=== PATIENT | female | born 1990 ===

== ENCOUNTER 2017-05-06 08:20 | Inpatient (IN) | payer BC ==
[2017-05-06 08:44] VITALS: BMI 29.5
[2017-05-06 09:50] LABS: Hematocrit 38.6 % (36.0-47.0); Mean Platelet Volume 10.1 fL (7.4-10.4); White Blood Cell (WBC) Count 14.6 thou/uL (4.8-10.8)
[2017-05-06] MEDS ORDERED: LR / Pitocin 40 units/1000 ml 1,000 ML ONE (10:07)
[2017-05-06] MEDS ORDERED: Lidocaine 1% (PF) 30 ML VIAL ONE (10:07)
[2017-05-06] MEDS ORDERED: Lidocaine 1% (PF) 30 ML VIAL SC PRN (11:11)
[2017-05-06] MEDS ORDERED: LR / Pitocin 40 units/1000 ml 1,000 ML IV PRN (11:11)
[2017-05-06] MEDS ORDERED: HYDROcodone/Acetaminophen 5/325 mg Tablet PO PRN ×2 (11:11→13:19)
[2017-05-06] MEDS ORDERED: Ibuprofen 800 MG TAB PO PRN (11:11)
[2017-05-06] MEDS ORDERED: Ondansetron HCl/PF 4 MG/2 ML Vial IVP PRN (11:12)
[2017-05-06] MEDS ORDERED: Promethazine HCl 25 MG/ML VIAL IM PRN (11:12)
[2017-05-06] MEDS ORDERED: Lactated Ringer's 1,000 ML IV SCH (11:15)
[2017-05-06] MEDS ORDERED: LR / Pitocin 40 units/1000 ml 1,000 ML IV SCH (13:19)
[2017-05-06] MEDS ORDERED: Milk Of Magnesia 30 ML UDCUP PO PRN (13:19)
[2017-05-06] MEDS ORDERED: Lanolin Ointment 7 GM TUBE TOP PRN (13:19)
[2017-05-06] MEDS ORDERED: Bisacodyl 10 MG SUPP PR PRN (13:19)
[2017-05-06] MEDS ORDERED: Preparation H Ointment 28 GM TUBE PR PRN (13:19)
[2017-05-06] MEDS: Ibuprofen 800 MG TAB PO SCH ×2 (15:01→21:51)
[2017-05-06] MEDS: Ferrous Sulfate 325 MG TAB PO SCH (15:02)
[2017-05-06] MEDS: Docusate (Surfak) 240 MG CAP PO SCH (21:51)
[2017-05-07] MEDS: Ibuprofen 800 MG TAB PO SCH ×2 (06:21→14:25)
[2017-05-07] MEDS: Ferrous Sulfate 325 MG TAB PO SCH (08:47)
[2017-05-07] MEDS ORDERED: Adacel (T-DAP) 0.5 ML VIAL IM ONE (09:00)
[2017-05-07] MEDS: Docusate (Surfak) 240 MG CAP PO SCH (09:18)
[2017-05-07 11:43] VITALS: BP 119/78; TEMP 98.2
== END 2017-05-07 15:10 | disposition home or self-care (01) | DRG 775 ==
LOC: L&D/OP 08:20 → L&D 08:59 → 3SE 13:50
PROVIDERS: ADMIT Family Medicine; ATTEND Family Medicine
PROC: 10E0XZZ Delivery of Products of Conception, External Approach (ICD-10-PCS; principal; 2017-05-06)
PROC: 10907ZC Drainage of Amniotic Fluid, Therapeutic from Products of Conception, Via Natural or Artificial Opening (ICD-10-PCS; 2017-05-06)
PROC: 0HQ9XZZ Repair Perineum Skin, External Approach (ICD-10-PCS; 2017-05-06)
PROC: 4A0HXCZ Measurement of Products of Conception, Cardiac Rate, External Approach (ICD-10-PCS; 2017-05-06)
DX: O76 Abnormality in fetal heart rate and rhythm complicating labor and delivery (principal); O77.0 Labor and delivery complicated by meconium in amniotic fluid; O70.0 First degree perineal laceration during delivery; Z37.0 Single live birth; Z3A.39 39 weeks gestation of pregnancy
CPT/HCPCS: 85027; 86780; 87340; J2001